=== PATIENT | female | born 1990 | race Caucasian/White ===

== ENCOUNTER 2021-08-03 11:50 | Outpatient (CLI) | payer OTHER, SELFPAY ==
[2021-08-03 12:27] VITALS: BMI 28.6
[2021-08-03] MEDS: Ringers, Lactated 1,000 ML IV.SOLN. 1000 ML IV (12:30)
[2021-08-03 13:00] VITALS: TEMP 36.9
--- NOTE | 2021-08-03 13:00 | OB.TRI.HP_ITS ---
HPI - General HPI Narrative ELISE ELIAS, 31-year-old 1 para 0 at 37-1/7 weeks with EDC of 08/23/21 presents for attempted external cephalic version. Patient said good movement. She denies vaginal bleeding, leaking of fluid or regular contractions. She was scanned in our office last week and found to have an AGA fetus with normal a mniotic fluid volume. Complete breech presentation. Maternal Data Information Final ROSIE: 08/23/21 Physical Exam Narrative Awake, alert, no acute distress. Abdomen soft, nontender, gravid. Extremities trace edema. Brief ultrasound confirms complete breech fetus with back on the maternal left side. NST FHR Rate Baby A Baseline: 130 Variability:: Moderate Accelerations:: 15 x 15 Decelerations:: None NST Reactive:: Yes FHR Category:: Category I Uterine Activity:: quiet Assessment & Plan (1) 37 weeks gestation of : (2) Primigravida in third trimester: (3) Complete breech: PLAN: Risk benefits and alternatives to external cephalic version versus primary section were reviewed with the patient. Questions were answered to her satisfaction. Consent was signed and she desired to proceed. Procedure note: After reactive NST was noted and a brief ultrasound was completed, attempted to perform an external cephalic version. Both forward and backward rolls were attempted. The fetus would vert to transverse but then revert back. heart tones were checked intermittently. heart tones were noted to be in the 80s to 90s when the procedure was completed. With maternal repositioning they spontaneously resolved back to normal baseline. Patient was given a fluid bolus. Will monitor for 1 hour. Send type and screen and give patient a dose of RhoGam. Patient elects for 39-week primary section if fetus remains breech.
[2021-08-03 13:01] VITALS: BP 105/58; PULSE 75; PULSE 81; O2SAT 98
[2021-08-03 13:12] LABS: Hematocrit 34.9 % (37-47); Hemoglobin 11.9 g/dL (12.0-15.0); Mean Corp Hgb Conc 34.1 g/dL (32-36); Mean Corpuscular Hgb 29.4 pg (27.0-32.0); Mean Corpuscular Volume 86.2 fL (81-99); Mean Platelet Vol. 10.1 fl (6.2-12.0); Platelet Count 217 K/mm3 (150-450); RBC Distribution Width CV 13.5 % (11.6-14.6); RBC Distribution Width SD 42.3 fl (35.1-43.9); Red Blood Count 4.05 M/mm3 (4.2-5.4); White Blood Count 11.1 K/mm3 (4.4-11.0)
[2021-08-03 14:06] VITALS: BP 104/69; PULSE 83
== END 2021-08-03 23:59 | disposition home or self-care (01) ==
LOC: WPOUT 12:07 → WP 12:08
PROVIDERS: PCP Family Medicine; Referring Provider Obstetrics & Gynecology; Visit Provider Obstetrics & Gynecology
DX: O32.1XX0 Maternal care for breech presentation, not applicable or unspecified (principal); Z3A.37 37 weeks gestation of pregnancy
CPT/HCPCS: 36415; 59025; 59050; 85027; 86850; 86900; 86901; 99218; J7120; G0378

== ENCOUNTER 2021-08-04 10:50 | Outpatient (CLI) | payer OTHER, SELFPAY ==
[2021-08-04 10:58] VITALS: BMI 29.3
[2021-08-04 11:06] VITALS: TEMP 36.7
[2021-08-04 11:07] VITALS: BP 105/68; PULSE 71
--- NOTE | 2021-08-04 16:58 | OB.TRI.NOTE ---
HPI - General HPI Narrative ELISE ELIAS, is a 31 F who presents for Rhogam injection s/p Attempted ECV on 08/03/21 PFSH PFSH Home Medications 1 tab PO/SL DAILY 08/03/21 [History Last Taken 08/03/21 08:00] Allergy/AdvReac Type Severity Reaction Status Date / Time No Known Allergies Allergy Verified 08/04/21 11:06 Assessment & Plan (1) Rh negative state in antepartum period: PLAN: Administer rhogam today- dc home
== END 2021-08-04 23:59 | disposition home or self-care (01) ==
LOC: WPOUT 10:57 → WP 10:58
PROVIDERS: PCP Family Medicine; Referring Provider Obstetrics & Gynecology; Visit Provider Obstetrics & Gynecology
DX: O26.899 Other specified pregnancy related conditions, unspecified trimester (principal); Z67.91 Unspecified blood type, Rh negative; Z3A.00 Weeks of gestation of pregnancy not specified; Z23 Encounter for immunization
CPT/HCPCS: 90384; 96372; 99218; G0378; J2790

== ENCOUNTER 2021-08-19 09:45 | Inpatient (IN) | payer SELFPAY ==
--- NOTE | 2021-08-14 16:31 | PCM.HP.BLA ---
History and Physical Date of Admission: 08/19/21 HPI: The patient is a 31 year old female presenting for pre-operative visit. She is scheduled for , for breech, failed ECV attempt on 08/17/21. Procedure discussed along with risks, benefits and complications. Other alternatives discussed for management. Consent form signed? Yes. ? ? PAST MEDICAL HISTORY No past medical history on file. ? ? PAST SURGICAL HISTORY No past surgical history on file. ? ? CURRENT MEDICATIONS Current Outpatient Medications Medication Sig Dispense Refill ? VIT [id number] ORAL Take by mouth. ? ? ? No current facility-administered medications for this visit. ? ? ALLERGIES: Patient has no known allergies. ? PERSONAL HISTORY: SOCIAL HISTORY Social History ? Tobacco Use ? Smoking status: Never Smoker ? Smokeless tobacco: Never Used Substance Use Topics ? Alcohol use: Not on file ? Drug use: Not on file ? FAMILY HISTORY: FAMILY HISTORY FAMILY HISTORY Problem Relation Age of Onset ? Kidney Disease Mother ? ? other (varicosities) Mother ? ? Liver Disease Maternal Grandmother ? ? Hypertension Maternal Grandfather ? ? other (other) Paternal Grandfather ? ? Psychiatry Paternal Grandfather ? ? ? REVIEW OF SYMPTOMS: GENERAL: denies fevers or chills ENDOCRINOLOGY: has not been on steroids Cardiology : denies palpitations or chest pain Respiratory: denies SOB or cough Hematology: denies history of prolonged bleeding or easy bruising or VTE Allergy: Denies history of personal or family history of allergy to anesthesia ? PHYSICAL EXAMINATION: ? VITALS: Last menstrual period 11/16/2020. ? GENERAL: The patient is well nourished, well hydrated in no acute distress. , The patient is oriented to time, place, and person. NECK: Supple. No lynphadenopathy, normal thyroid, no thyromegaly. LUNGS: Clear to auscultation bilaterally. no wheezes, rhonchi or rales HEART: Regular rate and rhythm, Normal heart sounds and No murmurs or gallops ABd- soft, nontender, gravid ? IMPRESSION: Estimated Date of Delivery: 08/23/21 , complete breech, failed ECV ? PLAN: The risks/benefits/alternatives and personal involved for the planned primary c/s were reviewed with the patient. Her questions were answered to her satisfaction and she desires to proceed. Consent was signed. I reviewed with her postop instructions and expectations. ? ? I have reviewed and updated past medical and surgical history, medications and allergies Assessment & Plan Assessment/Plan (1) Rh negative state in antepartum period: (2) Complete breech: (3) Primigravida in third trimester: (4) 39 weeks gestation of :
[2021-08-19] VITALS (17 sets, daily range): BP systolic 90–121; BP diastolic 48–67; PULSE 68–88; RESP 16–18; TEMP 36.3–36.9; O2SAT 97–100; BMI 29.3
[2021-08-19] MEDS: Lactated Ringers 1,000 ML 999 ML IV (10:38)
[2021-08-19 10:48] LABS: Absolute Lymphocyte Count 1.35 X10^3/uL (0.83-4.51); Absolute Neutrophil Count 8.3 X10^3/uL (2.0-7.7); Basophil# 0.05 X10^3/uL; Basophil% 0.5 % (0-1); Eosinophils% 1.9 % (0-5); Hematocrit 38.7 % (37-47); Hemoglobin 12.2 g/dL (12.0-15.0); Lymphocyte # 1.35 X10^3/ul (0.83-4.51); Lymphocyte % 12.8 % (19-41); Mean Corp Hgb Conc 31.5 g/dL (32-36); Mean Corpuscular Hgb 27.8 pg (27.0-32.0); Mean Corpuscular Volume 88.2 fL (81-99); Mean Platelet Vol. 10.3 fl (6.2-12.0); Monocyte# 0.57 X10^3/uL; Monocyte% 5.4 % (0-10); NRBC Flagged by Analyzer 0 % (0-5); Neutrophil # 8.29 X10^3/uL (2.7-7.7); Neutrophil % 78.3 % (47-70); Platelet Count 189 K/mm3 (150-450); RBC Distribution Width CV 13.9 % (11.6-14.6); RBC Distribution Width SD 44.7 fl (35.1-43.9); Red Blood Count 4.39 M/mm3 (4.2-5.4); White Blood Count 10.6 K/mm3 (4.4-11.0)
[2021-08-19] MEDS: Acetaminophen 500 MG Tablet 1000 MG PO ×2 (11:18→17:55)
[2021-08-19 11:26] LABS: Bacteria 0 SEEN /hpf (None Seen); Mucous, Urine 0 SEEN /hpf (<or=2+); Red Blood Cells-Urine 0 SEEN /hpf (0-5); Squamous Epithelial Cells - UA 0 SEEN /hpf (5-10); White Blood Cells 0 SEEN /hpf (0-5)
[2021-08-19] MEDS: Lactated Ringers 1,000 ML 150 ML IV (11:26)
[2021-08-19 11:33] LABS: Color, Urine Yellow (Yellow); Glucose, Dipstick Normal (Normal); Ketone-Dipstick Negative (Negative); Leukocyte Esterase-Dipstick 25 /ul (Negative); Nitrite-Dipstick Negative (Negative); Occult Blood-Urine Negative /ul (Negative); Protein-Dipstick Negative (Negative); Urine Bilirubin Dipstick Negative (Negative); Urine Clarity Clear (Clear); Urine Urobilinogen Normal (Normal)
[2021-08-19 11:35] LABS: Rubella IgG Non-Reactive (Nonreactive); Syphilis Antibodies Non-reactive
[2021-08-19 11:52] LABS: HIV - WCH Non-Reactive (Nonreactive); Hepatitis B Surface Antigen Non-Reactive (Nonreactive); Hepatitis C Antibody Non-Reactive (Nonreactive)
[2021-08-19] MEDS: Sodium Citrate/Citric Acid 30 ML UDC PO (11:52)
[2021-08-19] MEDS: Cefazolin 2 GM in 0.9% Normal Saline 100 ML IV (12:00)
--- NOTE | 2021-08-19 12:43 | OP.PCM_ITS ---
Maternal Data Information Final ROSIE: 08/23/21 Gestational age: 39 3/7 Details Operative Information Date of Procedure: 08/19/21 Pre-Operative Diagnosis: breech, 39 weeks, failed version Post-Operative Diagnosis: same Classification: Scheduled Procedure Type: low transverse gold charmer #1: Emy Yang Type of Anesthesia: Spinal Anesthesiologist: Alberto Shepherd Special Medications: duramoroph Antibiotic Given: Ancef 2 grams IV x1 Estimated Blood Loss: 600 Fluids Replaced: 700 Procedure Start Time: 12:25 Procedure Stop Time: 12:50 Time of Delivery: 12:28 Findings Description of Procedure: The patient was taken to the operating room. She was prepped and draped in the dorsal supine position with a leftward tilt. A Pfannenstiel skin incision was made approximately 2 cm above the symphysis pubis and carried through to underlying layer fascia with the scalpel. The fascia was incised incised in the midline and extended laterally with the Mendes scissors. The fascia was dissected off the rectus muscles with blunt and sharp dissection. The rectus muscles were in the midline and the peritoneum was entered bluntly. The peritoneal incision was stretched and the bladder blade was p laced. The uterine incision was made in a low transverse fashion with the scalpel and extended superiorly and inferiorly with blunt dissection. The amniotic membranes were ruptured bluntly and clear amniotic fluid returned. The 's buttocks were brought to the incision and delivered. The legs were swept out individually. The baby was turned back up and the arms were swept out individually. The head was then delivered in a flexed position with fundal pressure without difficulty. The cord was clamped and cut as the infant was stimulated. Cord clamping was not delayed because the did not immediately start to cry. The was handed off to the waiting nursing staff. The placenta was delivered with fundal massage and gentle traction in the standard fashion. The uterus was exteriorized and cleared of all clots and debris. The cervix was dilated with a ring forcep. The uterine incision was closed with #1 Vicryl in a running locked fashion. A second layer of the same suture was used in an imbricating fashion. The incision was examined and was found to be hemostatic. The uterus was placed back into the peritoneal cavity and hemostasis was again confirmed. The rectus muscles were examined and any bleeding was Bovie cauterized. The parietal peritoneum and rectus muscles were closed en bloc with an 0 Vicryl running suture. The surgical teams outer gloves were then changed. The rectus fascia was examined and any bleeding was Bovie cauterized and the rectus fascia was closed with 1 Vicryl suture in a running standard fashion. The subcutaneous tissue was examining and any bleeding was Bovie cauterized. The subcutaneous tissue was reapproximated with 3-0 Vicryl suture. The skin was closed in a subcuticular fashion by the DISABILITY RATER with me present in the labor and delivery suite. I performed the remainder of the procedure with assistance. All sponge, lap, and needle counts were correct. The patient was taken to her room for recovery in a stable condition. Presentation: Positive for Yinka Breech Amniotic Membrane Rupture Type: Artificial Amniotic Fluid Description: Clear Placental Delivery Description: Expressed Placenta Disposition: [facility] Cord Vessel Description: 3 Vessels Cord Entanglement: None Infant A Gender: Female (Gaby) (1 minute): 8 (5 minute): 9 Delayed Cord Clamping: No Complications Complications: none
[2021-08-19 12:55] LABS: Group B Strep DNA By PCR Negative (Negative); Internal Control PASS; Probe Check PASS; Specimen Processing Control PASS
[2021-08-19 13:11] LABS: Chlamydia Trachomatis by PCR Negative (Negative); Neisserai gonorrhoeae by PCR Negative (Negative); Probe Check PASS; Sample Adequacy Control PASS; Specimen Processing Control PASS
[2021-08-19] MEDS: Oxytocin 30 units/NS 500 ml 30 UNITS/500 ML IV.SOLN 167 UNITS IV (14:02)
[2021-08-19] MEDS: Ketorolac 30 MG/ML Syringe IV ×2 (14:03→20:18)
[2021-08-19] MEDS: 0.9% Saline Lock 10 ML Syringe IV (20:18)
--- NOTE | 2021-08-19 22:18 | NURSING ---
2115- This RN giving report to Trinh Ayala RN who will be resuming care at this time.
[2021-08-20] MEDS: Acetaminophen 500 MG Tablet 1000 MG PO ×4 (00:22→18:08)
[2021-08-20 00:27] VITALS: BP 95/59; PULSE 71; RESP 16; TEMP 36.6; O2SAT 98
[2021-08-20] MEDS: Ketorolac 30 MG/ML Syringe IV ×2 (01:58→08:35)
[2021-08-20] MEDS: 0.9% Saline Lock 10 ML Syringe IV (02:00)
[2021-08-20 04:45] VITALS: BP 96/52; PULSE 73; RESP 15; TEMP 36.5; O2SAT 96
[2021-08-20 06:38] LABS: Hematocrit 37.9 % (37-47); Hemoglobin 12.4 g/dL (12.0-15.0); Mean Corp Hgb Conc 32.7 g/dL (32-36); Mean Corpuscular Hgb 28.8 pg (27.0-32.0); Mean Corpuscular Volume 88.1 fL (81-99); Mean Platelet Vol. 10.3 fl (6.2-12.0); Platelet Count 189 K/mm3 (150-450); RBC Distribution Width CV 14.1 % (11.6-14.6); RBC Distribution Width SD 45.2 fl (35.1-43.9); White Blood Count 17.5 K/mm3 (4.4-11.0)
--- NOTE | 2021-08-20 08:14 | PCM.PN.OB ---
Subjective Subjective Pain well controlled, average lochia. No N/V. Jenna. regular diet. Objective Data Objective Data Vital Signs: Vital Signs Temp Pulse Resp BP Pulse Ox 97.7 F L 73 15 96/52 L 96 08/20/21 04:45 08/20/21 04:45 08/20/21 04:45 08/20/21 04:45 08/20/21 04:45 Oxygen Delivery Method Room Air Weight: 85.1 kg Body Mass Index (BMI) 29.3 Intake & Output: Intake and Output for Last 24 Hours 08/18/21 08/19/21 08/20/21 23:59 23:59 23:59 Intake Total 4944 / 4944 Output Total 1100 / 1100 1300 / 1300 Balance 3844 / 3844 -1300 / -1300 Lab / Micro Data Result Diagrams: 08/20/21 06:20 Labs: Laboratory Results - last 24 hr 08/19/21 10:25: WBC 10.6, RBC 4.39, Hgb 12.2, Hct 38.7, MCV 88.2, MCH 27.8, MCHC 31.5 L, RDW Std Deviation 44.7 H, RDW Coeff of Inna 13.9, Plt Count 189, MPV 10.3, Immature Gran % (Auto) 1.100 H, Neut % (Auto) 78.3 H, Lymph % (Auto) 12.8 L, [place] % (Auto) 5.4, Eos % (Auto) 1.9, Baso % (Auto) 0.5, Absolute Neuts (auto) 8.3 H, Absolute Lymphs (auto) 1.35, Nucleated RBC % 0 08/19/21 10:25: Syphilis Total Ab Non-reactive, Rubella IgG Antibody Non-Reactive 08/19/21 10:25: Blood Type A NEGATIVE, Antibody Screen POSITIVE H, Antibody Identification ANTI-D 08/19/21 10:25: Hep Bs Antigen Non-Reactive, Hepatitis C Antibody Non-Reactive, HIV 1&2 Antibody Non-Reactive 08/19/21 11:15: Urine Color Yellow, Urine Clarity Clear, Urine pH 7.0, Ur Specific [place] 1.010, Urine Protein Negative, Urine Glucose (UA) Normal, Urine Ketones Negative, Urine Occult Blood Negative, Urine Nitrite Negative, Urine Bilirubin Negative, Urine Urobilinogen Normal, Ur Leukocyte Esterase 25 H, Urine RBC 0 SEEN, Urine WBC 0 SEEN, Ur Squamous Epith Cells 0 SEEN, Urine Bacteria 0 SEEN, Urine Mucus 0 SEEN 08/19/21 11:15: Chlam trachomat DNA PCR Negative, N.gonorrhoeae DNA (PCR) Negative, Group B Strep DNA Negative, Specimen Comment Not Reportable 08/20/21 06:20: WBC 17.5 H, RBC 4.30, Hgb 12.4, Hct 37.9, MCV 88.1, MCH 28.8, MCHC 32.7, RDW Std Deviation 45.2 H, RDW Coeff of Inna 14.1, Plt Count 189, MPV 10.3 Micro: Microbiology 08/19/21 10:25 Nasal Secretion SARS-CoV-2 Antigen (Rapid) - Final Physical Exam Const alert General Appearance: cooperative GI GI Narrative: soft, moderate distention, fundus firm, appropriately tender. Abdominal bandage clean dry and intact Assessment & Plan (1) delivery delivered: PLAN: POD#1 doing well routine care and doing well anticipate d/c home tomorrow
[2021-08-20 08:27] VITALS: BP 95/57; PULSE 71; RESP 16; TEMP 36.1; O2SAT 98
[2021-08-20] MEDS: Senna/Docusate Sodium 1 Tablet PO (08:40)
[2021-08-20 12:00] VITALS: BP 99/58; PULSE 74; RESP 16; TEMP 36.3; O2SAT 97
[2021-08-20] MEDS: Ibuprofen 600 MG Tablet PO ×2 (13:48→20:08)
[2021-08-20 16:39] VITALS: BP 97/63; PULSE 87; RESP 16; TEMP 36.2; O2SAT 99
--- NOTE | 2021-08-20 19:12 | NURSING ---
1910-read and agree w denise rn charting
[2021-08-20 20:48] VITALS: BP 95/60; PULSE 64; RESP 14; TEMP 36.3
[2021-08-21] MEDS: Acetaminophen 500 MG Tablet 1000 MG PO ×2 (00:28→06:48)
[2021-08-21] MEDS: Ibuprofen 600 MG Tablet PO ×2 (02:10→09:10)
[2021-08-21 02:15] VITALS: BP 99/66; PULSE 70; RESP 18; TEMP 36
--- NOTE | 2021-08-21 06:26 | DS.PCM_ITS ---
Providers Date of Admission: 08/19/21 Primary Care Physician: Dr. Willis Coronel MD Reason For Visit: PRIMARY C SECTION/BREECH Diagnosis Discharge Diagnosis (1) delivery delivered: Status: Acute Code(s): O82 - Encounter for delivery without indication Medications at Discharge Home Medications 1 tab PO/SL DAILY 08/03/21 acetaminophen 1,000 mg PO Q6H #0 tab 08/21/21 ibuprofen 600 mg PO Q6H #0 tab 08/21/21 sennosides-docusate sodium [Stool Softener-Stimulant Laxat] 1 - 2 tab PO DAILY #0 tab 08/21/21 Hospital Course Operations section Summary of Care Provided Hospital Course: Patient here for primary section. Hospital course was uneventful. Physical Exam Narrative Patient seen at bedside. In chair infant. Ambulating and voiding without difficulty. Had BM last night. Passing flatus. Denies headache, dizziness, SOB, or CP. Lochia is minimal. Pain controlled with Tylenol and Motrin PO. Desires discharge home today. Dressing is dry and intact. Const alert and no apparent distress General Appearance: cooperative and comfortable Exam Limitations: no limitations HEENT normocephalic Eyes General Eye: normal appearance of both eyes Neck full ROM General: normal visual inspection Chest Chest: symmetrical chest wall rise Resp normal respiratory effort and normal air movement Effort and Inspection: symmetric chest movement Auscultation: clear to auscultation bilaterally Cardio regular rate and regular rhythm GI normal to inspection, nondistended, normoactive bowel sounds Back/Spine normal ROM Extremity full ROM and no calf tenderness General Extremity: normal exam except as noted Skin no rashes or lesions noted Neuro CN's II-XII intact bilaterally Psych mental status grossly normal Weight / BMI Weight Weight: 187 lb 9.814 oz Body Mass Index (BMI) 29.3 ABG / Lab / Microbiology Data Result Diagrams: 08/20/21 06:20 Laboratory: Laboratory Results - last 24 hr 08/20/21 06:20: WBC 17.5 H, RBC 4.30, Hgb 12.4, Hct 37.9, MCV 88.1, MCH 28.8, MCHC 32.7, RDW Std Deviation 45.2 H, RDW Coeff of Inna 14.1, Plt Count 189, MPV 1 0.3 Microbiology: Microbiology 08/19/21 10:25 Nasal Secretion SARS-CoV-2 Antigen (Rapid) - Final D/C Instructions Discharge Diet: No restrictions May resume sexual activity in: 6-8 weeks Weight Bearing Status: Weight bearing as tolerated Lifting Restrictions: 20 lbs Call your doctor if your incision/area has: Continuous Slow Oozing, Increased Pain/ Swelling, Increased Redness, Foul Smelling Discharge and Swelling at the incision site Call your doctor if you observe: Fever of 101 or Higher, Inability to urinate, Using more than 1 pad per hour, Shortness of breath, Chest pain, Calf discomfort and Uncontrolled pain Remove Dressing in: 5 days Cleanse incision/area with: Soap & Water and Keep Dressing Clean & Dry When: 1 week in office for incision check or sooner if needed 6 weeks Meaningful Use Info Meaningful Use Diagnoses (Choose all that apply): None applicable Discharge Plan Admission Admit Date/Time: 08/19/21 09:45 Primary Reason for Your Visit: Primary Section Attending Provider: Lorri Stuart Primary Care Provider: Willis Coronel Discharge Orders/Prescriptions Prescriptions: New sennosides-docusate sodium [Stool Softener-Stimulant Laxat] 8.6-50 mg Tablet 1 - 2 tab PO DAILY Qty: 0 RF: 0 acetaminophen 500 mg Tablet 1,000 mg PO Q6H Qty: 0 RF: 0 ibuprofen 600 mg Tablet 600 mg PO Q6H Qty: 0 RF: 0 No Action 1 tab PO/SL DAILY RF: 0 Referrals / Follow Up: Willis Coronel MD [Primary Care Provider] - Disposition Disposition (needs filled in before D/C Order can be placed): Home, Self Care
[2021-08-21 08:58] VITALS: BP 95/57; PULSE 88; RESP 14; TEMP 36.3; O2SAT 96
[2021-08-21 09:38] VITALS: RESP 16
== END 2021-08-21 10:34 | disposition home or self-care (01) | DRG 788 ==
PROVIDERS: Admitting Provider Obstetrics & Gynecology; PCP Family Medicine; Visit Provider Obstetrics & Gynecology
PROC: 10D00Z1 Extraction of Products of Conception, Low, Open Approach (ICD-10-PCS; CPT 59514; principal; 2021-08-19 11:45)
DX: O32.1XX0 Maternal care for breech presentation, not applicable or unspecified (principal); Z37.0 Single live birth; Z3A.39 39 weeks gestation of pregnancy; Z67.91 Unspecified blood type, Rh negative
CPT/HCPCS: 81001; 85025; 85027; 86703; 86762; 86780; 86803; 86850; 86870; 86900; 86901; 87081; 87340; 87426; 87491; 87591; 87653; 99218; 99251; J7120; A4216; G0378; G0463; J2405

== ENCOUNTER 2023-04-20 01:40 | Outpatient (CLI) | payer SELFPAY ==
[2023-04-20 01:49] VITALS: BP 109/70; PULSE 109; TEMP 37; O2SAT 97
[2023-04-20 01:57] VITALS: BMI 30.2
--- NOTE | 2023-04-29 18:35 | OB.TRI.PN ---
Progress Notes Progress Note: presents at 39w3d for possible labor. Irregular contractions, painful. No fluid leakage or vaginal bleeding. Good movement. Laboratory Studies: [id number], moderate, accels, no decels, Reactive Assessment & Plan (1) False labor: PLAN: Plan 1) NST reactive 2) False labor 3) D/C home
== END 2023-04-20 02:20 | disposition home or self-care (01) ==
LOC: WPOUT 01:41 → WP 01:41
PROVIDERS: PCP Family Medicine; Referring Provider Advanced Practice Midwife; Visit Provider Advanced Practice Midwife
DX: O47.1 False labor at or after 37 completed weeks of gestation (principal); Z3A.39 39 weeks gestation of pregnancy
CPT/HCPCS: 59025; 59050; 99221; G0378

== ENCOUNTER 2023-04-21 00:55 | Inpatient (IN) | payer SELFPAY ==
[2023-04-21] VITALS (36 sets, daily range): BP systolic 90–122; BP diastolic 55–80; PULSE 75–100; RESP 14–16; TEMP 36.2–37.2; O2SAT 92–100; BMI 29.9
--- NOTE | 2023-04-21 01:13 | PCM.HP.OB ---
HPI - General General Date of Admission: 04/21/23 Date of Service: 04/21/23 Chief Complaint: contractions HPI Narrative ELISE ELIAS, is a 32 F who presents 32-year-old 2 para 1 admitted at 39-4/7 weeks gestation with contractions. She denies any gross vaginal bleeding or leaking of fluid. She is had good movement. is complicated to date by history of 1 previous delivery. Patient is Rh-, rubella nonimmune. Previous section for breech. Maternal Data Information Final ROSIE: 04/17/23 Gestational age: 39 4/7 [facility] Medical History (Updated 04/21/23 @ 01:[address] Lorri Stuart MD) 39 weeks gestation of delivery delivered Complete breech Primigravida in third trimester Rh negative state in antepartum period Home Medications 1 tab PO/SL DAILY 08/03/21 [History Last Taken 04/19/23 08:00] Allergy/AdvReac Type Severity Reaction Status Date / Time No Known Allergies Allergy Verified 04/21/23 00:45 Social History Smoking Status: Never smoker History Elective abortions Hx Para 0 Spontaneous abortions Hx # Term Pregnancies Ectopic pregnancies Hx # Pregnancies Multiple births # of living children ROS Constitutional Constitutional: Denies fatigue, fever(s) or malaise Eyes Eyes: Denies change in vision ENT HEENT: Denies dizziness or headache(s) Cardiovascular Cardiovascular: Denies chest pain, dyspnea or lightheadedness Respiratory/Chest Respiratory/Chest: Denies cough or dyspnea Gastrointestinal Gastrointestinal: Denies change in bowel habits Genitourinary Genitourinary: Denies burning urination or genital lesions Integumentary Integumentary: Denies rash Neurologic Neurologic: Denies confusion, dizziness, headache(s), numbness or weakness Vital Signs Vital Signs Vital Signs: 04/21/23 00:40 04/21/23 00:40 04/21/23 00:40 Temperature Temperature Source Temporal Pulse Rate 88 Blood Pressure 120/73 BP Systolic 120 BP Diastolic 73 Pulse Ox 04/21/23 00:40 04/21/23 00:40 Temperature 98.6 F Temperature Source Pulse Rate Blood Pressure BP Systolic BP Diastolic Pulse Ox 98 Weight Weight: 86.7 kg Body Mass Index (BMI) 29.9 Physical Exam Const alert and no apparent distress General Appearance: cooperative HEENT normocephalic Resp normal respiratory effort Cardio regular rate GI soft to palpation GI Narrative: gravid, nontender, appropriate for gestational age Extremity no calf tenderness General Extremity: edema Skin no wounds Rashes: No rashes noted Psych activity/motor behavior normal Labs Labs Labs: Blood Type A NEGATIVE Antibody Screen POSITIVE H Hct 37.9 % (37-47) Hgb 12.4 g/dL (12.0-15.0) Syphilis Total Ab Non-reactive Rubella IgG Antibody Non-Reactive (Nonreactive) Hep Bs Antigen Non-Reactive (Nonreactive) Hepatitis C Antibody Non-Reactive (Nonreactive) HIV 1&2 Antibody Non-Reactive (Nonreactive) Group B Strep DNA Negative (Negative) Assessment & Plan (1) Spontaneous onset of labor: PLAN: 32-year-old 2 para 1 at term with spontaneous onset of labor. Previous section for breech. Risk benefits and alternatives to trial labor discussed with the patient her questions were answered to her satisfaction she desires to proceed. May have routine pain control measures as needed. Patient understands recommendation for epidural and declines at this time. Estimated weight is less than 4500 g and pelvis clinically adequate to expect vaginal delivery. (2) Previous delivery affecting , antepartum:
[2023-04-21] MEDS: Lactated Ringers 1,000 ML 50 ML IV (01:25)
[2023-04-21 01:40] LABS: Absolute Lymphocyte Count 1.19 X10^3/uL (0.83-4.51); Absolute Neutrophil Count 13.8 X10^3/uL (2.0-7.7); Basophil# 0.06 X10^3/uL; Basophil% 0.4 % (0-1); Eosinophils% 0.6 % (0-5); Hematocrit 38.2 % (37-47); Hemoglobin 12.5 g/dL (12.0-15.0); Lymphocyte # 1.19 X10^3/ul (0.83-4.51); Lymphocyte % 7.5 % (19-41); Mean Corp Hgb Conc 32.7 g/dL (32-36); Mean Corpuscular Hgb 28.5 pg (27.0-32.0); Mean Platelet Vol. 10.1 fl (6.2-12.0); Monocyte# 0.56 X10^3/uL; Monocyte% 3.5 % (0-10); NRBC Flagged by Analyzer 0 % (0-5); Neutrophil # 13.78 X10^3/uL (2.7-7.7); Neutrophil % 86.8 % (47-70); Platelet Count 205 K/mm3 (150-450); RBC Distribution Width CV 14.1 % (11.6-14.6); Red Blood Count 4.39 M/mm3 (4.2-5.4); White Blood Count 15.9 K/mm3 (4.4-11.0)
[2023-04-21 02:30] LABS: Syphilis Antibodies Non-reactive
[2023-04-21] MEDS: Oxytocin 15 Units/NS 250ml 15 UNITS/250 ML IV.SOLN 83 UNITS IV (04:53)
[2023-04-21] MEDS: Oxytocin 10 UNITS/ML Vial IM (04:53)
[2023-04-21] MEDS: Lidocaine 1% (20 ml mdv) 20 ML Vial INFILT (04:55)
--- NOTE | 2023-04-21 05:16 | OP.PCM_ITS ---
Assessment & Plan (1) (vaginal after ): Maternal Data Information Final ROSIE: 04/21/23 Gestational age: 39 5/7 Vaginal Delivery Maternal Presentation Maternal Presentation: Active Labor Operative Information Date of Procedure: 04/21/23 Pre-Operative Diagnosis: labor Post-Operative Diagnosis: same Surgery / Procedure Performed: Type of Anesthesia: Local with 1% Lidocaine (18 cc) Special Medications: none Drain: - (none) Estimated Blood Loss: 600 Time of Delivery: 04:50 Findings Description of Procedure: A vigorous female infant was delivered KARLA over a second-degree perineal laceration. The remainder the was delivered with maternal pushing and gentle traction only in less than 15 seconds. The Pitocin infusion was initiated for active management of the third stage. The cord was clamped and cut after 1 minute. The infant was attended to by the waiting nursing staff. The placenta was delivered spontaneously and intact. The cervix and vagina were intact. The second-degree perineal laceration was repaired with 3-0 Vicryl suture in a running standard fashion. Most of the EBL was from some active bleeding from since blood vessels and the laceration itself. Uterus was explored and was intact. Sponge and needle counts were correct. A vaginal sw eep was completed by me. Presentation: KARLA Amniotic Membrane Rupture Type: Artificial Amniotic Fluid Description: Clear Placental Delivery Description: Spontaneous Placenta Disposition: [facility] Cord Vessel Description: 3 Vessels Cord Entanglement: None Infant A Gender: Female (Marybel) (1 minute): 9 (5 minute): 9 Delayed Cord Clamping: Yes Post Vaginal Delivery Medications Given After Delivery: IV Pitocin and IM Pitocin Episiotomy Description: None Laceration: 2nd degree Complication Complications: None Admit VTE Documentation VTE Present on Admission: No VTE Mechan Device Prophylaxis: SCD's VTE Pharm Prophylaxis Ordered: No Reason Prophylaxis Not Ordered: Procedure Not Indicated
[2023-04-21] MEDS: Ibuprofen 600 MG Tablet PO ×2 (06:31→15:42)
[2023-04-21] MEDS: Acetaminophen 500 MG Tablet 1000 MG PO (20:45)
[2023-04-22 00:16] VITALS: BP 88/51; PULSE 74; RESP 16; TEMP 36.7; O2SAT 98
[2023-04-22 02:30] LABS: Absolute Lymphocyte Count 2.34 X10^3/uL (0.83-4.51); Absolute Neutrophil Count 11.6 X10^3/uL (2.0-7.7); Basophil# 0.06 X10^3/uL; Basophil% 0.4 % (0-1); Eosinophil# 0.12 X10^3/uL; Eosinophils% 0.8 % (0-5); Hematocrit 30.4 % (37-47); Lymphocyte # 2.34 X10^3/ul (0.83-4.51); Lymphocyte % 15.3 % (19-41); Mean Corp Hgb Conc 32.9 g/dL (32-36); Mean Corpuscular Volume 88.1 fL (81-99); Mean Platelet Vol. 10.1 fl (6.2-12.0); Monocyte# 0.89 X10^3/uL; Monocyte% 5.8 % (0-10); NRBC Flagged by Analyzer 0 % (0-5); Neutrophil # 11.63 X10^3/uL (2.7-7.7); Platelet Count 192 K/mm3 (150-450); RBC Distribution Width CV 14.3 % (11.6-14.6); RBC Distribution Width SD 45.5 fl (35.1-43.9); Red Blood Count 3.45 M/mm3 (4.2-5.4); White Blood Count 15.3 K/mm3 (4.4-11.0)
[2023-04-22 04:58] VITALS: BP 93/66; PULSE 80; RESP 16; TEMP 36.3
--- NOTE | 2023-04-22 07:12 | DS.PCM_ITS ---
Providers Date of Admission: 04/21/23 Primary Care Physician: Dr. Willis Coronel MD Reason For Visit: VAG Diagnosis Discharge Diagnosis (1) (vaginal after ): Status: Acute Code(s): O34.219 - Maternal care for unspecified type scar from previous delivery (2) Care and examination of lactating mother: Status: Acute Code(s): Z39.1 - Encounter for care and examination of lactating mother Medications at Discharge Home Medications 1 tab PO/SL DAILY 08/03/21 Hospital Course Operations None Procedures None Summary of Care Provided Minutes Spent on Discharge: 15 Hospital Course: Patient here for . Hospital course was uneventful. Physical Exam Const alert and no apparent distress General Appearance: cooperative and comfortable Exam Limitations: no limitations HEENT normocephalic Eyes General Eye: normal appearance of both eyes Neck full ROM General: normal visual inspection Chest Chest: symmetrical chest wall rise Resp normal respiratory effort and normal air movement Effort and Inspection: symmetric chest movement Auscultation: clear to auscultation bilaterally Cardio regular rate and regular rhythm GI normal to inspection, nondistended, normoactive bowel sounds Back/Spine normal ROM Extremity full ROM and no calf tenderness General Extremity: normal exam except as noted Skin no rashes or lesions noted Neuro CN's II-XII intact bilaterally Psych mental status grossly normal Weight / BMI Weight Weight: 191 lb 2.252 oz Body Mass Index (BMI) 29.9 ABG / Lab / Microbiology Data 04/22/23 02:22 Laboratory: Laboratory Results - last 24 hr 04/22/23 02:22: WBC 15.3 H, RBC 3.45 L, Hgb 10.0 L, Hct 30.4 L, MCV 88.1, MCH 29 .0, MCHC 32.9, RDW Std Deviation 45.5 H, RDW Coeff of Inna 14.3, Plt Count 192, MPV 10.1, Immature Gran % (Auto) 1.700 H, Neut % (Auto) 76.0 H, Lymph % (Auto) 15.3 L, [place] % (Auto) 5.8, Eos % (Auto) 0.8, Baso % (Auto) 0.4, Absolute Neuts (auto) 11.6 H, Absolute Lymphs (auto) 2.34, Nucleated RBC % 0 D/C Instructions Discharge Diet: No restrictions May resume sexual activity in: 6-8 weeks Weight Bearing Status: Weight bearing as tolerated Call your doctor if you observe: Fever of 101 or Higher, Inability to urinate, Using more than 1 pad per hour, Shortness of breath, Chest pain, Calf discomfort and Uncontrolled pain Please Follow Up With: Katerina Sanchez CNM When: 2 weeks virtual visit/ 6 weeks in office Meaningful Use Info Meaningful Use Diagnoses (Choose all that apply): None applicable Discharge Plan Admission Admit Date/Time: 04/21/23 00:55 Primary Reason for Your Visit: Labor and Delivery Attending Provider: Lorri Stuart Primary Care Provider: Willis Coronel Discharge Orders/Prescriptions Prescriptions: No Action 1 tab PO/SL DAILY Referrals / Follow Up: Willis Coronel MD [Primary Care Provider] - Katerina Sanchez CNM [Med Staff - Adv Practice Prof] - Disposition Disposition (needs filled in before D/C Order can be placed): Home, Self Care
[2023-04-22 07:49] VITALS: BP 93/59; PULSE 71; RESP 18; TEMP 36.4; O2SAT 99
[2023-04-22] MEDS: Acetaminophen 500 MG Tablet 1000 MG PO (09:38)
== END 2023-04-22 10:30 | disposition home or self-care (01) | DRG 807 ==
LOC: WPOUT 01:00 → WP 01:00
PROVIDERS: Admitting Provider Obstetrics & Gynecology; PCP Family Medicine; Referring Provider Obstetrics & Gynecology; Visit Provider Obstetrics & Gynecology
DX: O34.219 Maternal care for unspecified type scar from previous cesarean delivery (principal); Z37.0 Single live birth; O26.893 Other specified pregnancy related conditions, third trimester; Z67.11 Type A blood, Rh negative; O70.1 Second degree perineal laceration during delivery; Z3A.39 39 weeks gestation of pregnancy; Z87.59 Personal history of other complications of pregnancy, childbirth and the puerperium
CPT/HCPCS: 59025; 59050; 85025; 86780; 86850; 86900; 86901; 99221; J7120; G0378